=== PATIENT | female | born 1955 | race Caucasian/White ===

== ENCOUNTER → 2023-03-29 | Outpatient (CLI) | payer MEDICARE, OTHER ==
[~2023-03-29] MED LIST: INSR10I; INSULIN ISOPHANE; RAMI5; SULTRIDS PO; [UNRECOGNIZED DRUG - OTHER]
[2023-03-29 16:15] LABS: Source, Urine Clean Catch
[2023-03-29 18:03] LABS: Appearance, Urine Hazy (Clear); Bilirubin, Urine Neg (Neg); Blood, Urine Neg (Neg); Color, Urine Yellow (P-Yellow); Glucose Qualitative, Urine 4+ (Neg); Ketones, Urine Neg (Neg); Leukocyte Esterase, Urine 2+ (Neg); Nitrite, Urine Neg (Neg); Protein, Urine 1+ (Neg); Urobilinogen, Urine NORM (Normal)
[2023-03-29 18:38] LABS: Red Blood Cells, Urine 0-2 /hpf (0-2); Squamous Epithelial Cells Mod /hpf (Few)
[2023-03-29 18:39] LABS: Amorphous Light (0-Heavy); Bacteria Many /hpf; Hyaline Casts 0-2 /lpf (0-2); Mucus Light (0-Heavy); Transitional Epithelial Cells Rare /hpf (0-Rare)
== END ==
LOC: LAB 16:12 → LAB SHORT 16:12
PROVIDERS: Student in an Organized Health Care Education/Training Program
DX: R30.0 Dysuria (principal)
CPT/HCPCS: 81001; 87086

== ENCOUNTER → 2023-09-01 | Outpatient (CLI) | payer MEDICARE, OTHER ==
[2023-09-01 13:47] LABS: Microalbumin, Urine Quant. 67.9 mg/L (0.000-20.000); Protein, Urine Quantitative 28.8 mg/dL (0.0-11.9)
[2023-09-06 12:07] LABS: M-SPIKE, % Not Observed % (Not Observed)
== END ==
LOC: LAB 09:00 → LAB SHORT 09:00 → LAB FUT 08-30 13:25
PROVIDERS: Internal Medicine Nephrology
DX: N18.30 Chronic kidney disease, stage 3 unspecified (principal); D63.1 Anemia in chronic kidney disease
CPT/HCPCS: 81050; 82043; 82570; 84133; 84156; 84166; 86335

== ENCOUNTER → 2024-07-24 | Outpatient (CLI) | payer MEDICARE, OTHER | END | disposition home or self-care (01) | LOC: LAB SHORT 14:47 → LAB 14:47 | DX: R35.0 Frequency of micturition (principal) | CPT/HCPCS: 87086 ==

== ENCOUNTER 2024-12-26 15:16 | Emergency (ER) | payer MEDICARE ==
[~2024-12-26] VITALS: Ht 162.6 cm; Wt 61.2 kg
[2024-12-26 15:43] VITALS: BP 170/70
[2024-12-26] MEDS ORDERED: Norco 5-325 Ta1 EACH PO (16:20)
== END 2024-12-26 17:02 | disposition home or self-care (01) ==
LOC: ER 15:16
DX: S90.32XA Contusion of left foot, initial encounter (principal); Z79.4 Long term (current) use of insulin; E10.9 Type 1 diabetes mellitus without complications; F17.200 Nicotine dependence, unspecified, uncomplicated; J44.9 Chronic obstructive pulmonary disease, unspecified; W20.8XXA Other cause of strike by thrown, projected or falling object, initial encounter; Z59.89 Other problems related to housing and economic circumstances
CPT/HCPCS: 73630; 99283-25